=== PATIENT | male | born 1980 | race Two or more races ===

== ENCOUNTER 2023-12-10 06:17 | Day surgery (SDC) | payer BC, SELFPAY ==
[2023-12-10] VITALS (8 sets, daily range): BP systolic 128–158; BP diastolic 72–96; BMI 23.3
[2023-12-10] MEDS: NORMOSOL-R 1000 IV (08:01)
[2023-12-10] MEDS: TYLENOL 1000 MG PO (08:01)
[2023-12-10] MEDS: MOTRIN 600 MG PO (12:04)
== END 2023-12-10 13:12 | disposition home or self-care (01) ==
LOC: SDS 06:17
PROVIDERS: ATTENDING PHYSICIAN Surgery
DX: K40.20 Bilateral inguinal hernia, without obstruction or gangrene, not specified as recurrent (principal)
CPT/HCPCS: 49650; C1781